=== PATIENT | male | born 1980 | race Caucasian/White ===

== ENCOUNTER 2021-06-17 12:23 | Inpatient (IN) | payer OTHER ==
[~2021-06-17] VITALS: Ht 172.7 cm; Wt 65.9 kg
[2021-06-17 13:32] LABS: BASOPHILS % (AUTO) 0.7 % (0.0-2.0); EOSINOPHILS % (AUTO) 1.4 % (1.0-6.0); HEMATOCRIT 41.9 % (41-53); HEMOGLOBIN 14.3 g/dL (13.5-17.5); LYMPHOCYTES # (AUTO) 1.2 K/uL (1.0-4.8); LYMPHOCYTES % (AUTO) 27.2 % (22.0-44.0); MEAN CORPUSCULAR HEMOGLOBIN 31.5 pg (26.0-34.0); MEAN CORPUSCULAR VOLUME 93 fL (80-100); MONOCYTES # (AUTO) 0.5 K/uL (0.1-1.0); MONOCYTES % (AUTO) 10.8 % (2.0-9.0); NEUTROPHILS # (AUTO) 2.6 K/uL (1.8-7.7); NEUTROPHILS % (AUTO) 59.9 % (40.0-70.0); PLATELET COUNT (AUTO) 165 K/uL (150-450); RED BLOOD CELL COUNT(AUTO) 4.53 MIL/uL (4.50-5.90); RED CELL DISTRIBUTION WIDTH 13.3 % (11.5-14.5)
[2021-06-17 13:38] LABS: ANION GAP 5 mmol/L (8-16); CALCIUM, TOTAL 8.9 mg/dL (8.8-10.5); CARBON DIOXIDE 31 mmol/L (22-29); CHLORIDE 105 mmol/L (98-107); CREATININE 0.91 mg/dL (0.60-1.30); GLOMERULAR FILTR. RATE CALC > 60 mL/min (>60); GLUCOSE,RANDOM 79 mg/dL (70-110); POTASSIUM 4.4 mmol/L (3.5-5.1); SODIUM SERUM 141 mmol/L (136-145); UREA NITROGEN, BLOOD 14 mg/dL (7-18)
[2021-06-17 13:41] LABS: COVID AG,FIA SOURCE NASOPHARYNGEAL
[2021-06-17 13:44] LABS: ALANINE AMINOTRANSFERASE 35 U/L (12-78); ALBUMIN 3.6 g/dL (3.4-5.0); ALKALINE PHOSPHATASE 49 U/L (46-116); ASPARTATE AMINOTRANSFERASE 19 U/L (15-37); BILIRUBIN,TOTAL 0.4 mg/dL (0.1-1.0)
[2021-06-17] MEDS ORDERED: ONDANSETRON HCL 4 MG/2 ML VIAL IVP PRN (14:00)
[2021-06-17] MEDS ORDERED: 0.9% SODIUM CHLORIDE 10 ML SYRINGE IVP PRN (14:00)
[2021-06-17] MEDS ORDERED: ACETAMINOPHEN 325 MG TABLET PO PRN ×2 (14:00→15:45)
[2021-06-17] MEDS ORDERED: HYDR-4031 PO (14:10)
[2021-06-17] MEDS ORDERED: HYDR50CA9 PO (14:10)
[2021-06-17 15:24] VITALS: BP 129/81
[2021-06-17] MEDS ORDERED: NICOTINE 14 MG/24 HOUR PATCH TD PRN (15:45)
[2021-06-17] MEDS ORDERED: ONDANSETRON HCL 4 MG TABLET PO PRN (15:45)
[2021-06-17] MEDS ORDERED: CloNIDine HCL 0.1 MG TABLET PO PRN (15:45)
[2021-06-17] MEDS ORDERED: GuaiFENesin/D-METHORPHAN [SUGAR-FREE] 200-20MG/10 ML SYRUP UDCUP PO PRN (15:45)
[2021-06-17] MEDS ORDERED: IBUPROFEN 400 MG TABLET PO PRN (15:45)
[2021-06-17] MEDS ORDERED: DOCUSATE SODIUM 100 MG CAPSULE PO PRN (15:45)
[2021-06-17] MEDS ORDERED: PETROLATUM,WHITE 28 GM JELLY TP PRN (15:45)
[2021-06-17] MEDS ORDERED: LOPERAMIDE HCL 2 MG CAPSULE PO PRN (15:45)
[2021-06-17] MEDS ORDERED: MAGNESIUM HYDROXIDE SUSPENSION 30 ML UDCUP PO PRN (15:45)
[2021-06-17] MEDS ORDERED: MAG HYDROX/AL HYDROX/SIMETH ES 30 ML SUSPENSION UDCUP PO PRN (15:45)
[2021-06-17] MEDS ORDERED: ALBUTEROL SULFATE HFA 90 MCG/PUFF 8 GM INHALER IH PRN (15:45)
[2021-06-17 16:30] LABS: AMPHET/METH SCREEN,URINE NEGATIVE (NEGATIVE); BARBITURATE SCREEN, URINE NEGATIVE (NEGATIVE); BENZODIAZEPINES SCREEN,URINE NEGATIVE (NEGATIVE); CANNABINOID SCREEN,URINE NEGATIVE (NEGATIVE); COCAINE SCREEN,URINE NEGATIVE (NEGATIVE); METHADONE SCREEN, URINE NEGATIVE (NEGATIVE); OPIATE SCREEN,URINE NEGATIVE (NEGATIVE)
[2021-06-17 16:31] LABS: PHENCYCLIDINE SCREEN,URINE NEGATIVE (NEGATIVE)
[2021-06-17] MEDS: HydrOXYzine PAMOATE 50 MG CAPSULE PO PRN (20:54)
[2021-06-17 21:10] VITALS: BP 111/65
[2021-06-18 05:22] VITALS: BP 124/75
[2021-06-18 08:16] VITALS: BP 109/71
[2021-06-18] MEDS: LORazepam 1 MG TABLET PO PRN ×2 (13:00→20:07)
[2021-06-18 16:10] VITALS: BP 112/68
[2021-06-18 19:52] VITALS: BP 116/63
[2021-06-18] MEDS: RisperiDONE 2 MG TABLET PO SCH (20:07)
[2021-06-18] MEDS: HydrOXYzine PAMOATE 50 MG CAPSULE PO PRN (22:07)
[2021-06-19 04:39] VITALS: BP 94/57
[2021-06-19 07:54] VITALS: BP 100/56
[2021-06-19] MEDS: LORazepam 1 MG TABLET PO PRN ×2 (15:29→22:01)
[2021-06-19] MEDS: RisperiDONE 2 MG TABLET PO SCH (20:26)
[2021-06-19] MEDS: HydrOXYzine PAMOATE 50 MG CAPSULE PO PRN (20:30)
[2021-06-19 20:49] VITALS: BP 117/69
[2021-06-20 04:00] VITALS: BP_SYST 147; BP_SYST 99; BP_DIAS 58; BP_DIAS 82
[2021-06-20 08:44] VITALS: BP 125/72
[2021-06-20] MEDS: LORazepam 1 MG TABLET PO PRN ×2 (14:25→20:29)
[2021-06-20] MEDS: RisperiDONE 2 MG TABLET PO SCH (20:27)
[2021-06-20 20:28] VITALS: BP 122/70
[2021-06-20] MEDS: HydrOXYzine PAMOATE 50 MG CAPSULE PO PRN (20:29)
[2021-06-21 04:18] VITALS: BP 101/62
[2021-06-21 08:00] VITALS: BP 98/59
[2021-06-21] MEDS: LORazepam 1 MG TABLET PO PRN ×2 (13:42→20:24)
[2021-06-21 20:08] VITALS: BP 115/66
[2021-06-21] MEDS: RisperiDONE 2 MG TABLET PO SCH (20:23)
[2021-06-21] MEDS: HydrOXYzine PAMOATE 50 MG CAPSULE PO PRN (20:24)
[2021-06-22 05:13] VITALS: BP 94/65
[2021-06-22 07:29] VITALS: BP 106/60
[2021-06-22] MEDS: LORazepam 1 MG TABLET PO PRN ×2 (11:36→21:09)
[2021-06-22 15:59] VITALS: BP 111/57
[2021-06-22 20:13] VITALS: BP 118/74
[2021-06-22] MEDS: RisperiDONE 2 MG TABLET PO SCH (21:08)
[2021-06-22] MEDS: HydrOXYzine PAMOATE 50 MG CAPSULE PO PRN (21:11)
[2021-06-23 05:19] VITALS: BP 96/59
[2021-06-23 07:58] VITALS: BP 106/62
[2021-06-23] MEDS: LORazepam 1 MG TABLET PO PRN (08:01)
[2021-06-23] MEDS ORDERED: RISP2TAB45 PO (10:10)
[2021-06-23] MEDS ORDERED: ACET-2247 PO (11:10)
[2021-06-23] MEDS ORDERED: ALBU8HFA IH (11:11)
[2021-06-23] MEDS ORDERED: DOCU-270 PO (11:11)
== END 2021-06-23 12:35 | DRG 885 ==
LOC: EMS 12:26 → 6S 15:25
PROVIDERS: ADMIT Internal Medicine; ATTEND Internal Medicine
DX: F25.1 Schizoaffective disorder, depressive type (principal); R45.851 Suicidal ideations; K21.9 Gastro-esophageal reflux disease without esophagitis; F12.90 Cannabis use, unspecified, uncomplicated; D72.819 Decreased white blood cell count, unspecified; Z20.822 Contact with and (suspected) exposure to COVID-19; F41.9 Anxiety disorder, unspecified; F15.90 Other stimulant use, unspecified, uncomplicated; I10 Essential (primary) hypertension; Z91.5 Personal history of self-harm
CPT/HCPCS: 80053; 85025; 99285; G0480